=== PATIENT | female | born 1980 | race African-American/Black ===

== ENCOUNTER 2016-05-25 17:29 | Emergency (ER) | payer SELFPAY ==
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
== END 2016-05-25 18:18 | disposition home or self-care (01) ==
LOC: NAV ERS 17:29
DX: S80.02XA Contusion of left knee, initial encounter (principal); K21.9 Gastro-esophageal reflux disease without esophagitis; E05.90 Thyrotoxicosis, unspecified without thyrotoxic crisis or storm; F41.9 Anxiety disorder, unspecified; F31.9 Bipolar disorder, unspecified; Z79.899 Other long term (current) drug therapy; V89.2XXA Person injured in unspecified motor-vehicle accident, traffic, initial encounter
CPT/HCPCS: 99284

== ENCOUNTER 2016-08-20 10:44 | Emergency (ER) | payer BC, SELFPAY ==
[2016-08-20] MEDS ORDERED: Ondansetron HCl/PF 4 MG/2 ML Vial ONE (11:13)
[2016-08-20 11:50] LABS: #Basophils 0.1 thou/uL (0.0-0.2); #Eosinphils 0.1 thou/uL (0.0-0.7); #Lymphocytes 1.3 thou/uL (1.20-3.40); #Monocytes 0.6 thou/uL (0.11-0.59); #Neutrophils 5.5 thou/uL (1.40-6.50); %Basophils 1.1 % (0.0-1.0); %Eosinophils 1.2 % (0.0-10.0); %Lymphocytes 17.2 % (21.0-51.0); %Monocytes 7.5 % (0.0-10.0); Hemoglobin 12.4 g/dL (12.0-16.0); Mean Corpuscular HGB CONC 33.3 g/dL (32.0-36.0); Mean Corpuscular Hemoglobin 32.9 pg (27.0-31.0); Mean Corpuscular Volume 98.9 fl (81.0-99.0); Mean Platelet Volume 5.6 fL (7.4-10.4); Platelet Count 334 thou/uL (130-400); RBC Distribution Width 12.1 % (11.5-14.5); Red Blood Cell (RBC) Count 3.76 mill/uL (4.20-5.40); White Blood Cell (WBC) Count 7.5 thou/uL (4.8-10.8)
[2016-08-20 11:54] LABS: Bilirubin Negative (Negative); Blood, Urine Large (Negative); Glucose, Urine (Dipstick) Negative (Negative); Leukocyte Negative (Negative); Nitrite Negative (Negative); Protein, Urine (Dipstick) 30 mg/dL (Neg-Trace); Urobilinogen 0.2 mg/dL (0.2-1.0)
[2016-08-20 11:57] LABS: Clarity SL HAZY (Clear)
[2016-08-20 12:01] LABS: Bacteria/HPF 2+ HPF (None Seen); Pregnancy Test - Urine (BHCG) NEGATIVE (NEGATIVE); Pregu Control Bar Appear? YES (CONTROL BAR); Specific Gravity 1.026 (1.002-1.036); Squamous Epithelial 0-3 HPF (0-3); WBC/HPF 0-3 HPF (0-3)
[2016-08-20 12:08] LABS: ALT (SGPT) 26 U/L (0-55); AST (SGOT) 29 U/L (5-34); Albumin 3.9 g/dL (3.5-5.0); Alkaline Phosphatase 55 U/L (40-150); Anion Gap 18 mmol/L (10-20); BUN (Urea Nitrogen) 15 mg/dL (7.0-18.7); Bilirubin, Total 0.5 mg/dL (0.2-1.2); Calc. Creatinine Clearance 0 mL/min (70-130); Calcium 8.5 mg/dL (7.8-10.44); Carbon Dioxide 23 mmol/L (22-29); Chloride 98 mmol/L (98-107); Estimated GFR-MDRD 82; Globulin 3.6 g/dL (2.4-3.5); Glucose 95 mg/dL (70-105); Lipase 9 U/L (8-78); Potassium 3.8 mmol/L (3.5-5.1); Protein, Total 7.5 g/dL (6.0-8.3); Sodium 135 mmol/L (136-145)
[2016-08-20] MEDS ORDERED: Ketorolac Tromethamine 30 MG/ML VIAL ONE (12:22)
[2016-08-20] MEDS ORDERED: Sodium Chloride 0.9% 1,000 ML ONE ×2 (12:22→12:42)
--- NOTE | 2016-08-20 12:55 | RAD ---
EXAM: ONE VIEW CHEST ABDOMEN 2 VIEWS: HISTORY: Abdominal pain. Nausea and vomiting. FINDINGS: CHEST 1 VIEW: Normal cardiac silhouette. Lungs and pleural spaces are clear. No pneumothorax or osseous abnormal ity. ABDOMEN 2 VIEWS: Nonspecific bowel gas pattern. No distention or dilatation. No suspicious densities in the ad and pelvis. No pneumoperitoneum. IMPRESSION: 1. No acute cardiopulmonary process. 2. Nonspecific bowel gas pattern. POS: [facility]
== END 2016-08-20 13:58 | disposition home or self-care (01) ==
LOC: NAV ERS 10:44
DX: E86.0 Dehydration (principal); R11.2 Nausea with vomiting, unspecified; K21.9 Gastro-esophageal reflux disease without esophagitis; F41.9 Anxiety disorder, unspecified; F31.9 Bipolar disorder, unspecified; Z72.0 Tobacco use; Z79.899 Other long term (current) drug therapy
CPT/HCPCS: 74022; 80053; 81003; 81015; 81025; 83605; 83690; 85025; 96361; 96374; 96375; J1885; J2405; J7050

== ENCOUNTER 2016-08-30 10:49 | Emergency (ER) | payer BC | END 2016-08-30 11:28 | disposition home or self-care (01) | LOC: NAV ERS 10:49 | DX: M25.462 Effusion, left knee (principal); M32.9 Systemic lupus erythematosus, unspecified; K21.9 Gastro-esophageal reflux disease without esophagitis; F31.9 Bipolar disorder, unspecified; F41.9 Anxiety disorder, unspecified; Z79.899 Other long term (current) drug therapy | CPT/HCPCS: 99283 ==

== ENCOUNTER 2016-09-16 23:39 | Emergency (ER) | payer BC ==
[~2016-09-16 23:39] MED LIST: Iopamidol 370 76% 100 ML VIAL ONE
[2016-09-17 00:23] LABS: Bilirubin Negative (Negative); Blood, Urine Small (Negative); Clarity Clear (Clear); Glucose, Urine (Dipstick) Negative (Negative); Leukocyte Negative (Negative); Nitrite Negative (Negative); Pregnancy Test - Urine (BHCG) NEGATIVE (NEGATIVE); Pregu Control Bar Appear? YES (CONTROL BAR); Protein, Urine (Dipstick) Negative (Neg-Trace); Specific Gravity 1.005 (1.002-1.036); Specific Gravity, Urine 1.005 (1.002-1.036); Urobilinogen 0.2 mg/dL (0.2-1.0)
[2016-09-17 00:24] LABS: Bacteria/HPF None Seen HPF (None Seen); WBC/HPF None Seen HPF (0-3)
[2016-09-17 00:32] LABS: Amphetamine Not Detected (NotDetected); Barbiturates Screen Not Detected (NotDetected); Benzodiazepine Screen Not Detected (NotDetected); Cocaine Metabolite Screen Not Detected (NotDetected); Medtox Control Line Valid? VALID (VALID); Methadone Not Detected (NotDetected); Methamphetamine Not Detected (NotDetected); Opiate Screen Not Detected (NotDetected); Oxycodone Screen Not Detected (NotDetected); Phencyclidine (PCP) Not Detected (NotDetected); THC/Cannabinoid Screen Not Detected (NotDetected); Tricyclic Screen Not Detected (NotDetected)
[2016-09-17 00:37] LABS: #Basophils 0.1 thou/uL (0.0-0.2); #Eosinphils 0.1 thou/uL (0.0-0.7); #Monocytes 0.4 thou/uL (0.11-0.59); #Neutrophils 4.7 thou/uL (1.40-6.50); %Basophils 0.9 % (0.0-1.0); %Eosinophils 1.4 % (0.0-10.0); %Lymphocytes 27.8 % (21.0-51.0); %Monocytes 5.8 % (0.0-10.0); %Neutrophils 64.1 % (42.0-75.0); Hemoglobin 12.3 g/dL (12.0-16.0); Mean Corpuscular Hemoglobin 32.6 pg (27.0-31.0); Mean Corpuscular Volume 95.9 fl (81.0-99.0); Mean Platelet Volume 6.5 fL (7.4-10.4); Platelet Count 297 thou/uL (130-400); RBC Distribution Width 11.4 % (11.5-14.5); Red Blood Cell (RBC) Count 3.77 mill/uL (4.20-5.40); White Blood Cell (WBC) Count 7.3 thou/uL (4.8-10.8)
[2016-09-17] MEDS ORDERED: Ondansetron HCl/PF 4 MG/2 ML Vial ONE (01:03)
[2016-09-17 01:07] LABS: ALT (SGPT) 14 U/L (8-55); AST (SGOT) 18 U/L (5-34); Albumin 4.1 g/dL (3.5-5.0); Alcohol 202 mg/dL (Less than 10); Alkaline Phosphatase 57 U/L (40-150); Anion Gap 16 mmol/L (10-20); BUN (Urea Nitrogen) 16 mg/dL (7.0-18.7); Bilirubin, Total 0.3 mg/dL (0.2-1.2); Calc. Creatinine Clearance 0 mL/min (70-130); Calcium 8.8 mg/dL (7.8-10.44); Carbon Dioxide 19 mmol/L (22-29); Chloride 102 mmol/L (98-107); Estimated GFR-MDRD 81; Globulin 3.7 g/dL (2.4-3.5); Glucose 108 mg/dL (70-105); Potassium 3.3 mmol/L (3.5-5.1); Protein, Total 7.8 g/dL (6.0-8.3); Sodium 134 mmol/L (136-145)
[2016-09-17] MEDS ORDERED: Fentanyl 100 MCG/2 ML VIAL ONE (02:38)
[2016-09-17] MEDS ORDERED: Sodium Chloride 0.9% 1,000 ML ONE (02:39)
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
== END 2016-09-17 01:44 | disposition home or self-care (01) ==
LOC: NAV ERS 23:39
DX: S30.1XXA Contusion of abdominal wall, initial encounter (principal); F10.129 Alcohol abuse with intoxication, unspecified; M32.9 Systemic lupus erythematosus, unspecified; K21.9 Gastro-esophageal reflux disease without esophagitis; E05.90 Thyrotoxicosis, unspecified without thyrotoxic crisis or storm; F31.9 Bipolar disorder, unspecified; F41.9 Anxiety disorder, unspecified; Z79.899 Other long term (current) drug therapy; W01.0XXA Fall on same level from slipping, tripping and stumbling without subsequent striking against object, initial encounter
CPT/HCPCS: 36415; 74177; 80053; 80306; 80307; 81003; 81015; 81025; 85025; 96374; 96375; J2405; J3010; J7050

== ENCOUNTER 2017-01-07 14:54 | Emergency (ER) | payer BC, MEDICAID, SELFPAY ==
[2017-01-07] MEDS ORDERED: Ketorolac Tromethamine 60 MG/2 ML VIAL ONE (15:24)
[2017-01-07] MEDS ORDERED: Lidocaine 1% 20 ML MDV ONE (15:53)
--- NOTE | 2017-01-07 16:14 | RAD ---
RIGHT FOOT: 01/07/17 Three views obtained. HISTORY: Injury to foot. Tarsals appear intact. Metatarsals appear intact. Phalanges appear intact. IMPRESSION: No acute fracture identified. POS: [facility]
[2017-01-07] MEDS ORDERED: Triple Antibiotic Oint 1 GM Packet ONE (16:26)
== END 2017-01-07 17:00 | disposition home or self-care (01) ==
LOC: NAV ERS 14:54
DX: S91.114A Laceration without foreign body of right lesser toe(s) without damage to nail, initial encounter (principal); K21.9 Gastro-esophageal reflux disease without esophagitis; E05.90 Thyrotoxicosis, unspecified without thyrotoxic crisis or storm; F41.9 Anxiety disorder, unspecified; F31.9 Bipolar disorder, unspecified; F17.210 Nicotine dependence, cigarettes, uncomplicated; Z79.899 Other long term (current) drug therapy; W23.0XXA Caught, crushed, jammed, or pinched between moving objects, initial encounter
CPT/HCPCS: 12002; 96372; J1885; J2001

== ENCOUNTER 2017-01-21 20:33 | Emergency (ER) | payer SELFPAY ==
[2017-01-21] MEDS ORDERED: Ibuprofen 800 MG TAB ONE (22:25)
[2017-01-21] MEDS ORDERED: cefTRIAXone\\ROCEPHIN 2 GM VIAL ONE (22:25)
[2017-01-21] MEDS ORDERED: Morphine Sulfate 2 MG/ML SYRINGE ONE (22:25)
== END 2017-01-21 22:57 | disposition home or self-care (01) ==
LOC: NAV ERS 20:33
DX: T81.4XXA Infection following a procedure, initial encounter (principal); S91.114D Laceration without foreign body of right lesser toe(s) without damage to nail, subsequent encounter; Z48.02 Encounter for removal of sutures; F41.9 Anxiety disorder, unspecified; F31.9 Bipolar disorder, unspecified; F17.200 Nicotine dependence, unspecified, uncomplicated; K21.9 Gastro-esophageal reflux disease without esophagitis; E03.9 Hypothyroidism, unspecified; Z79.899 Other long term (current) drug therapy
CPT/HCPCS: 96372; J0696; J2270

== ENCOUNTER 2017-01-25 17:44 | Emergency (ER) | payer SELFPAY ==
[2017-01-25] MEDS ORDERED: Ibuprofen 800 MG TAB ONE (18:04)
[2017-01-25] MEDS ORDERED: Ondansetron ODT 4 MG TAB ONE (18:05)
== END 2017-01-25 18:55 | disposition home or self-care (01) ==
LOC: NAV ERS 17:44
DX: R07.89 Other chest pain (principal); B34.9 Viral infection, unspecified; K21.9 Gastro-esophageal reflux disease without esophagitis; E05.90 Thyrotoxicosis, unspecified without thyrotoxic crisis or storm; F41.9 Anxiety disorder, unspecified; F32.9 Major depressive disorder, single episode, unspecified; Z87.891 Personal history of nicotine dependence; Z79.2 Long term (current) use of antibiotics; Z79.899 Other long term (current) drug therapy
CPT/HCPCS: 93005; Q0162

== ENCOUNTER 2017-02-23 11:50 | Emergency (ER) | payer SELFPAY | END 2017-02-23 12:29 | disposition home or self-care (01) | LOC: NAV ERS 11:50 | DX: T19.2XXA Foreign body in vulva and vagina, initial encounter (principal); M32.9 Systemic lupus erythematosus, unspecified; K21.9 Gastro-esophageal reflux disease without esophagitis; E05.90 Thyrotoxicosis, unspecified without thyrotoxic crisis or storm; F41.9 Anxiety disorder, unspecified; F31.9 Bipolar disorder, unspecified; Z79.899 Other long term (current) drug therapy | CPT/HCPCS: 99283 ==

== ENCOUNTER 2017-04-04 20:53 | Emergency (ER) | payer MEDICAID ==
[2017-04-04] MEDS ORDERED: Ondansetron ODT 4 MG TAB ONE (21:01)
[2017-04-04] MEDS ORDERED: Promethazine HCl 25 MG/ML VIAL ONE (21:21)
== END 2017-04-04 21:51 | disposition home or self-care (01) ==
LOC: NAV ERS 20:53
DX: R11.2 Nausea with vomiting, unspecified (principal); E03.9 Hypothyroidism, unspecified; E78.5 Hyperlipidemia, unspecified; F31.9 Bipolar disorder, unspecified; F41.9 Anxiety disorder, unspecified; K21.9 Gastro-esophageal reflux disease without esophagitis; M32.9 Systemic lupus erythematosus, unspecified; Z85.850 Personal history of malignant neoplasm of thyroid; Z79.899 Other long term (current) drug therapy
CPT/HCPCS: 96372; J2550; Q0162

== ENCOUNTER 2017-04-13 10:04 | Emergency (ER) | payer MEDICAID, SELFPAY ==
[2017-04-13 10:56] LABS: Bilirubin Negative (Negative); Blood, Urine Large (Negative); Clarity Turbid (Clear); Glucose, Urine (Dipstick) Negative (Negative); Leukocyte Negative (Negative); Nitrite Negative (Negative); Protein, Urine (Dipstick) Negative (Neg-Trace); Urobilinogen 0.2 mg/dL (0.2-1.0); pH, Urine 5.5 (5.0-9.0)
[2017-04-13 11:06] LABS: Pregnancy Test - Urine (BHCG) Negative (Negative); Pregu Control Background? CLEAR/WHITE (CLR/WHITE); Pregu Control Bar Appear? YES (CONTROL BAR)
[2017-04-13 11:15] LABS: Bacteria/HPF None Seen HPF (None Seen); RBC/HPF GREATER THAN 50-TNTC HPF (0-3); Squamous Epithelial 0-3 HPF (0-3)
[2017-04-13 11:21] LABS: #Basophils 0.1 thou/uL (0.0-0.2); #Eosinphils 0.1 thou/uL (0.0-0.7); #Lymphocytes 1.4 thou/uL (1.20-3.40); #Monocytes 0.3 thou/uL (0.11-0.59); #Neutrophils 2.9 thou/uL (1.40-6.50); %Basophils 1.6 % (0.0-1.0); %Lymphocytes 29.3 % (21.0-51.0); %Monocytes 6.9 % (0.0-10.0); %Neutrophils 59.2 % (42.0-75.0); Hemoglobin 12.3 g/dL (12.0-16.0); Mean Corpuscular HGB CONC 32.7 g/dL (32.0-36.0); Mean Corpuscular Hemoglobin 32.8 pg (27.0-31.0); Mean Platelet Volume 6.7 fL (7.4-10.4); Platelet Count 326 thou/uL (130-400); RBC Distribution Width 11.4 % (11.5-14.5); Red Blood Cell (RBC) Count 3.76 mill/uL (4.20-5.40); White Blood Cell (WBC) Count 4.8 thou/uL (4.8-10.8)
[2017-04-13] MEDS ORDERED: Ketorolac Tromethamine 30 MG/ML VIAL ONE (11:27)
[2017-04-13 11:30] LABS: ALT (SGPT) 30 U/L (8-55); AST (SGOT) 24 U/L (5-34); Alkaline Phosphatase 59 U/L (40-150); Anion Gap 15 mmol/L (10-20); BUN (Urea Nitrogen) 24 mg/dL (7.0-18.7); Bilirubin, Total 0.2 mg/dL (0.2-1.2); Calc. Creatinine Clearance 0 mL/min (70-130); Calcium 8.7 mg/dL (7.8-10.44); Carbon Dioxide 21 mmol/L (22-29); Chloride 105 mmol/L (98-107); Estimated GFR-MDRD Greater than 90; Globulin 3.8 g/dL (2.4-3.5); Glucose 83 mg/dL (70-105); Lipase 16 U/L (8-78); Potassium 4.3 mmol/L (3.5-5.1); Protein, Total 7.8 g/dL (6.0-8.3); Sodium 137 mmol/L (136-145)
--- NOTE | 2017-04-13 12:32 | CT ---
CT OF THE ABDOMEN AND PELVIS WITH IV CONTRAST: INDICATIONS: A 37-year-old female with abdominal pain and cramping, concerning for possible foreign body. The pat ient reports that she put a tampon in and cannot remember if she took it out. FINDINGS: No gas-filled tampon is seen within the vaginal vault. No free fluid is evident within the abdominal cavity or pelvis. There is a small hiatal hernia. There is a stable small hepatic cyst within the right hepatic lobe. The kidneys, adrenal glands, pancreas, and spleen appear within normal limits. There is a normal appendix in the right lower quadrant. No acute osseous abnormality is evident. IMPRESSION: 1. No gas-filled tampon is evident within the vagina; however, would recommend correlation with phys ical exam to exclude the presence of a completely fluid-filled tampon within this location. Foreign body within the vaginal vault cannot be entirely excluded on the CT examination. 2. No acute intraabdominal or intrapelvic abnormality demonstrated. POS: [facility]
== END 2017-04-13 13:22 | disposition home or self-care (01) ==
LOC: NAV ERS 10:04
DX: R10.31 Right lower quadrant pain (principal); R10.32 Left lower quadrant pain; F41.9 Anxiety disorder, unspecified; F31.9 Bipolar disorder, unspecified; E05.90 Thyrotoxicosis, unspecified without thyrotoxic crisis or storm; K21.9 Gastro-esophageal reflux disease without esophagitis; M32.9 Systemic lupus erythematosus, unspecified; E78.5 Hyperlipidemia, unspecified; Z87.891 Personal history of nicotine dependence; Z79.899 Other long term (current) drug therapy
CPT/HCPCS: 36415; 74177; 80053; 81003; 81015; 81025; 83605; 83690; 85025; 96374; 96375; J1885; J2270

== ENCOUNTER 2017-05-09 12:25 | Emergency (ER) | payer MEDICAID ==
[2017-05-09] MEDS ORDERED: Morphine 4 MG/ML Carpuject ONE (13:12)
[2017-05-09] MEDS ORDERED: Sodium Chloride 0.9% 2,000 ML ONE (13:15)
[2017-05-09 13:42] LABS: #Basophils 0.1 thou/uL (0.0-0.2); #Eosinphils 0.2 thou/uL (0.0-0.7); #Lymphocytes 1.7 thou/uL (1.20-3.40); #Monocytes 0.6 thou/uL (0.11-0.59); #Neutrophils 4.5 thou/uL (1.40-6.50); %Basophils 0.7 % (0.0-1.0); %Eosinophils 2.8 % (0.0-10.0); %Lymphocytes 24.4 % (21.0-51.0); %Monocytes 8.4 % (0.0-10.0); %Neutrophils 63.6 % (42.0-75.0); Hemoglobin 11.3 g/dL (12.0-16.0); Mean Corpuscular HGB CONC 31.4 g/dL (32.0-36.0); Mean Corpuscular Hemoglobin 29.6 pg (27.0-31.0); Mean Corpuscular Volume 94.4 fl (81.0-99.0); Mean Platelet Volume 7.2 fL (7.4-10.4); Platelet Count 308 thou/uL (130-400); RBC Distribution Width 11.9 % (11.5-14.5); Red Blood Cell (RBC) Count 3.83 mill/uL (4.20-5.40); White Blood Cell (WBC) Count 7.1 thou/uL (4.8-10.8)
[2017-05-09 13:50] LABS: BHCG - Serum Negative (NEGATIVE); Pregs Control Bar Appear? YES (CONTROL BAR)
[2017-05-09 13:53] LABS: Anion Gap 15 mmol/L (10-20); BUN (Urea Nitrogen) 17 mg/dL (7.0-18.7); Calc. Creatinine Clearance 0 mL/min (70-130); Calcium 8.7 mg/dL (7.8-10.44); Carbon Dioxide 22 mmol/L (22-29); Chloride 105 mmol/L (98-107); Estimated GFR-MDRD Greater than 90; Glucose 88 mg/dL (70-105); Potassium 3.9 mmol/L (3.5-5.1); Sodium 138 mmol/L (136-145)
[2017-05-09 14:01] LABS: Bilirubin Negative (Negative); Blood, Urine Large (Negative); Clarity Clear (Clear); Glucose, Urine (Dipstick) Negative (Negative); Leukocyte Negative (Negative); Nitrite Negative (Negative); Protein, Urine (Dipstick) Negative (Neg-Trace); Specific Gravity, Urine 1.025 (1.005-1.030); Urobilinogen 0.2 mg/dL (0.2-1.0)
[2017-05-09 14:08] LABS: Bacteria/HPF Rare-Few HPF (None Seen); Other Microscopic Description NO; RBC/HPF GREATER THAN 50-TNTC HPF (0-3); WBC/HPF 0-3 HPF (0-3)
[2017-05-09] MEDS ORDERED: Ketorolac Tromethamine 30 MG/ML VIAL ONE (15:30)
--- NOTE | 2017-05-09 15:34 | CT ---
CT OF ABDOMEN AND PELVIS PERFORMED WITH INTRAVENOUS CONTRAST ENHANCEMENT: 05/09/17 HISTORY: Right lower quadrant pain. COMPARISON: 04/13/17 study. The lung bases are clear of infiltrative process. There is some gravity dependent atelectasis. Small hypodensity within the right lobe of the liver, statistically most likely a tiny cyst. The sple en, pancreas and gallbladder regions are unremarkable. Right and left adrenal glands and right and left kidneys are normal in size. No renal calculi or evid ence for obstruction. CT OF PELVIS PERFORMED WITH CONTRAST ENHANCEMENT: The appendix is unremarkable. There is no evidence of adenopathy, mass, or free fluid. Air is seen in the region of the vagina consistent with a tampon. IMPRESSION: No acute intra-abdominal or pelvic abnormalities. POS: [facility]
== END 2017-05-09 17:30 | disposition short-term general hospital (02) ==
LOC: NAV ERS 12:25
DX: R10.31 Right lower quadrant pain (principal); E78.5 Hyperlipidemia, unspecified; K21.9 Gastro-esophageal reflux disease without esophagitis; F41.9 Anxiety disorder, unspecified; F31.9 Bipolar disorder, unspecified; Z87.891 Personal history of nicotine dependence; Z79.899 Other long term (current) drug therapy
CPT/HCPCS: 74177; 80048; 81003; 81015; 83605; 84703; 85025; 87086; 96361; 96374; 96375; J1885; J2270; J7050

== ENCOUNTER 2017-05-20 11:06 | Emergency (ER) | payer OTHER ==
[2017-05-20] MEDS ORDERED: Ketorolac Tromethamine 60 MG/2 ML VIAL ONE (11:45)
[2017-05-20] MEDS ORDERED: Adacel (T-DAP) 0.5 ML VIAL ONE (11:45)
--- NOTE | 2017-05-20 13:05 | RAD ---
LEFT KNEE 4 VIEWS; Date: 05/20/17 HISTORY: 37-year-old female with left knee pain following a fall last night. IMPRESSION: No fracture, dislocation, or other significant acute osseous abnormality. POS: [facility]
--- NOTE | 2017-05-20 13:29 | RAD ---
RIGHT KNEE 4 VIEWS: Date: 05/20/17 HISTORY: 37-year-old female with bilateral knee pain following a fall after being tripped last night. IMPRESSION: No fracture, dislocation, or other significant acute osseous abnormality. POS: [facility]
== END 2017-05-20 12:53 | disposition home or self-care (01) ==
LOC: NAV ERS 11:06
DX: S80.01XA Contusion of right knee, initial encounter (principal); S00.211A Abrasion of right eyelid and periocular area, initial encounter; E78.5 Hyperlipidemia, unspecified; K21.9 Gastro-esophageal reflux disease without esophagitis; F41.9 Anxiety disorder, unspecified; F31.9 Bipolar disorder, unspecified; Z87.891 Personal history of nicotine dependence; W22.8XXA Striking against or struck by other objects, initial encounter; Z79.899 Other long term (current) drug therapy
CPT/HCPCS: 90471; 90715; 96372; J1885

== ENCOUNTER 2017-06-05 20:10 | Emergency (ER) | payer MEDICAID, OTHER ==
[2017-06-05] MEDS ORDERED: Ibuprofen 800 MG TAB ONE (21:09)
--- NOTE | 2017-06-05 21:44 | CT ---
CT OF HEAD NONCONTRAST: Indication: Fall with head injury, pain. FINDINGS: There is no acute intracranial hemorrhage, mass effect, midline shift or ventriculomegaly. Scattered paranasal sinus opacification present. IMPRESSION: No acute intracranial hemorrhage or mass effect. POS: [facility]
--- NOTE | 2017-06-05 21:47 | CT ---
CT OF FACE NONCONTRAST: Indication: Fall with facial injury, pain. FINDINGS: Orbital berumen are intact. There is mild leftward nasal septal deviation with associated nasal septal spur. Maxillary sinus berumen are intact. No post-traumatic dislocation of either temporomandibular moises nt. Pterygoid plates are maintained. There is no retrobulbar hematoma or mass effect. There is an oss eous deformity of the nasal bones, more notable on the right. IMPRESSION: 1. Nasal bone deformity which may relate to an acute fracture. If there is focal pain in this region, correlate with physical exam. 2. Additional details as above. POS: [facility]
[2017-06-05] MEDS ORDERED: Bacitracin Zinc 1 Packet ONE (21:49)
== END 2017-06-05 22:00 | disposition home or self-care (01) ==
LOC: NAV ERS 20:10
DX: S02.2XXA Fracture of nasal bones, initial encounter for closed fracture (principal); S01.511A Laceration without foreign body of lip, initial encounter; S80.212A Abrasion, left knee, initial encounter; E78.5 Hyperlipidemia, unspecified; K21.9 Gastro-esophageal reflux disease without esophagitis; Z87.891 Personal history of nicotine dependence; F31.9 Bipolar disorder, unspecified; F41.9 Anxiety disorder, unspecified; W01.0XXA Fall on same level from slipping, tripping and stumbling without subsequent striking against object, initial encounter; Y93.66 Activity, soccer
CPT/HCPCS: 12011; 70450; 70486

== ENCOUNTER 2017-06-08 10:53 | Emergency (ER) | payer MEDICAID, SELFPAY | END 2017-06-08 11:40 | disposition home or self-care (01) | LOC: NAV ERS 10:53 | DX: S02.2XXD Fracture of nasal bones, subsequent encounter for fracture with routine healing (principal); S01.81XD Laceration without foreign body of other part of head, subsequent encounter; L08.9 Local infection of the skin and subcutaneous tissue, unspecified; E78.5 Hyperlipidemia, unspecified; M32.9 Systemic lupus erythematosus, unspecified; K21.9 Gastro-esophageal reflux disease without esophagitis; E03.9 Hypothyroidism, unspecified; F31.9 Bipolar disorder, unspecified; Z85.850 Personal history of malignant neoplasm of thyroid; Z87.891 Personal history of nicotine dependence; Z79.899 Other long term (current) drug therapy; X58.XXXD Exposure to other specified factors, subsequent encounter | CPT/HCPCS: 99282 ==

== ENCOUNTER 2017-07-14 12:50 | Emergency (ER) | payer OTHER ==
[2017-07-14] MEDS ORDERED: Ketorolac Tromethamine 60 MG/2 ML VIAL ONE (13:05)
[2017-07-14] MEDS ORDERED: Cyclobenzaprine 10 MG TAB ONE (13:11)
== END 2017-07-14 13:36 | disposition home or self-care (01) ==
LOC: NAV ERS 12:50
DX: M54.2 Cervicalgia (principal); E66.9 Obesity, unspecified; E78.5 Hyperlipidemia, unspecified; M32.9 Systemic lupus erythematosus, unspecified; K21.9 Gastro-esophageal reflux disease without esophagitis; E03.9 Hypothyroidism, unspecified; F41.9 Anxiety disorder, unspecified; F31.9 Bipolar disorder, unspecified; G40.909 Epilepsy, unspecified, not intractable, without status epilepticus; Z87.891 Personal history of nicotine dependence; Z85.850 Personal history of malignant neoplasm of thyroid; Z79.1 Long term (current) use of non-steroidal anti-inflammatories (NSAID); Z79.899 Other long term (current) drug therapy
CPT/HCPCS: 96372; J1885

== ENCOUNTER 2017-08-04 14:07 | Emergency (ER) | payer OTHER ==
[2017-08-04] MEDS ORDERED: Morphine 4 MG/ML Carpuject ONE (14:38)
[2017-08-04] MEDS ORDERED: Ondansetron HCl/PF 4 MG/2 ML Vial ONE (14:38)
[2017-08-04 14:41] LABS: Bilirubin Negative (Negative); Blood, Urine Small (Negative); Clarity Clear (Clear); Glucose, Urine (Dipstick) Negative (Negative); Leukocyte Trace (Negative); Nitrite Negative (Negative); Protein, Urine (Dipstick) Negative (Neg-Trace); Urobilinogen 0.2 mg/dL (0.2-1.0); pH, Urine 5.5 (5.0-9.0)
[2017-08-04 14:47] LABS: RBC/HPF 0-3 HPF (0-3); Squamous Epithelial 0-3 HPF (0-3); WBC/HPF 0-3 HPF (0-3)
[2017-08-04 14:48] LABS: Specific Gravity, Urine 1.022 (1.002-1.036)
[2017-08-04 14:57] LABS: #Basophils 0.1 thou/uL (0.0-0.2); #Eosinphils 0.1 thou/uL (0.0-0.7); #Lymphocytes 1.6 thou/uL (1.20-3.40); #Monocytes 0.7 thou/uL (0.11-0.59); #Neutrophils 3.9 thou/uL (1.40-6.50); %Basophils 1.5 % (0.0-1.0); %Eosinophils 2.1 % (0.0-10.0); %Lymphocytes 24.8 % (21.0-51.0); %Monocytes 10.4 % (0.0-10.0); %Neutrophils 61.1 % (42.0-75.0); Hemoglobin 11.8 g/dL (12.0-16.0); Mean Corpuscular HGB CONC 31.9 g/dL (32.0-36.0); Mean Corpuscular Hemoglobin 28.6 pg (27.0-31.0); Mean Corpuscular Volume 89.6 fl (81.0-99.0); Mean Platelet Volume 6.6 fL (7.4-10.4); Platelet Count 346 thou/uL (130-400); RBC Distribution Width 12.2 % (11.5-14.5); Red Blood Cell (RBC) Count 4.11 mill/uL (4.20-5.40); White Blood Cell (WBC) Count 6.3 thou/uL (4.8-10.8)
[2017-08-04 15:09] LABS: ALT (SGPT) 20 U/L (8-55); AST (SGOT) 24 U/L (5-34); Albumin 3.9 g/dL (3.5-5.0); Alkaline Phosphatase 73 U/L (40-150); Anion Gap 16 mmol/L (10-20); BUN (Urea Nitrogen) 16 mg/dL (7.0-18.7); Bilirubin, Total 0.2 mg/dL (0.2-1.2); CK (CPK) 70 U/L (29-168); Calc. Creatinine Clearance 0 mL/min (70-130); Calcium 9.8 mg/dL (7.8-10.44); Carbon Dioxide 21 mmol/L (22-29); Chloride 106 mmol/L (98-107); Estimated GFR-MDRD Greater than 90; Globulin 4.1 g/dL (2.4-3.5); Glucose 80 mg/dL (70-105); Lipase 34 U/L (8-78); Potassium 4.3 mmol/L (3.5-5.1); Sodium 139 mmol/L (136-145)
--- NOTE | 2017-08-04 17:52 | CT ---
CT OF THE ABDOMEN AND PELVIS WITH IV CONTRAST: 08/04/17 INDICATION: One week following hysterectomy with nausea. COMPARISON: Prior exam dated 05/09/17. FINDINGS: Since the comparison examination, the uterus has been surgically removed. There is a 1.8 cm follicle within the right ovary. Left ovary is normal appearing. No free fluid is evident. The visualized uret ers are normal appearing. No lymphadenopathy is evident. The liver, spleen, pancreas, adrenal glands and kidneys are normal appearing. Normal appendix is seen within the right lower quadrant. No definit e acute osseous abnormality is evident. IMPRESSION: No acute abnormality. POS: [facility]
== END 2017-08-04 18:11 | disposition home or self-care (01) ==
LOC: NAV ERS 14:07
DX: K59.00 Constipation, unspecified (principal); E78.5 Hyperlipidemia, unspecified; K21.9 Gastro-esophageal reflux disease without esophagitis; E03.9 Hypothyroidism, unspecified; Z87.891 Personal history of nicotine dependence; Z79.899 Other long term (current) drug therapy
CPT/HCPCS: 74177; 80053; 81003; 81015; 82550; 83690; 85025; 96374; 96375; 96376; J2270; J2405

== ENCOUNTER 2017-09-20 20:38 | Emergency (ER) | payer OTHER ==
--- NOTE | 2017-09-20 21:14 | RAD ---
CHEST ONE VIEW 09/20/17 HISTORY: Anxiety. COMPARISON: Chest radiograph 2015. FINDINGS: Lungs are clear. No pneumothorax or effusion. The cardiac silhouette and mediastinal contours are wit hin normal limits. IMPRESSION: No acute intrathoracic abnormality. POS: [facility]
[2017-09-20] MEDS ORDERED: Lorazepam 2 MG/ML VIAL ONE (21:21)
[2017-09-20] MEDS ORDERED: Ondansetron HCl/PF 4 MG/2 ML Vial ONE (21:21)
[2017-09-20 21:40] LABS: #Basophils 0.1 thou/uL (0.0-0.2); #Eosinphils 0.2 thou/uL (0.0-0.7); #Lymphocytes 2.3 thou/uL (1.20-3.40); #Monocytes 0.5 thou/uL (0.11-0.59); #Neutrophils 3.1 thou/uL (1.40-6.50); %Basophils 1.2 % (0.0-1.0); %Eosinophils 2.4 % (0.0-10.0); %Lymphocytes 37.9 % (21.0-51.0); %Monocytes 8.2 % (0.0-10.0); %Neutrophils 50.3 % (42.0-75.0); Hemoglobin 11.5 g/dL (12.0-16.0); Mean Corpuscular HGB CONC 31.7 g/dL (32.0-36.0); Mean Corpuscular Hemoglobin 28.5 pg (27.0-31.0); Mean Corpuscular Volume 89.8 fl (81.0-99.0); Mean Platelet Volume 6.7 fL (7.4-10.4); Platelet Count 317 thou/uL (130-400); RBC Distribution Width 14.3 % (11.5-14.5); Red Blood Cell (RBC) Count 4.04 mill/uL (4.20-5.40); White Blood Cell (WBC) Count 6.2 thou/uL (4.8-10.8)
[2017-09-20 21:57] LABS: ALT (SGPT) 29 U/L (8-55); AST (SGOT) 28 U/L (5-34); Albumin 3.9 g/dL (3.5-5.0); Alkaline Phosphatase 63 U/L (40-150); Anion Gap 15 mmol/L (10-20); BUN (Urea Nitrogen) 22 mg/dL (7.0-18.7); Bilirubin, Total 0.1 mg/dL (0.2-1.2); Calc. Creatinine Clearance 0 mL/min (70-130); Calcium 8.3 mg/dL (7.8-10.44); Carbon Dioxide 21 mmol/L (22-29); Chloride 105 mmol/L (98-107); Estimated GFR-MDRD Greater than 90; Globulin 3.3 g/dL (2.4-3.5); Glucose 91 mg/dL (70-105); Potassium 3.6 mmol/L (3.5-5.1); Protein, Total 7.2 g/dL (6.0-8.3); Sodium 137 mmol/L (136-145)
[2017-09-20] MEDS ORDERED: Ketorolac Tromethamine 30 MG/ML VIAL ONE (21:57)
[2017-09-20 21:58] LABS: CKMB 0.8 ng/mL (0-6.6); Troponin I Less than 0.010 ng/mL (< 0.028)
== END 2017-09-20 22:20 | disposition home or self-care (01) ==
LOC: NAV ERS 20:38
DX: K52.1 Toxic gastroenteritis and colitis (principal); F41.0 Panic disorder [episodic paroxysmal anxiety]; K21.9 Gastro-esophageal reflux disease without esophagitis; F32.9 Major depressive disorder, single episode, unspecified; Z87.891 Personal history of nicotine dependence; E03.9 Hypothyroidism, unspecified; Z79.899 Other long term (current) drug therapy
CPT/HCPCS: 71045; 80053; 82553; 84484; 85025; 85379; 93005; 96374; 96375; J1885; J2060; J2405

== ENCOUNTER 2017-10-22 18:53 | Emergency (ER) | payer OTHER ==
[2017-10-22] MEDS ORDERED: Ketorolac Tromethamine 60 MG/2 ML VIAL ONE (19:16)
[2017-10-22] MEDS ORDERED: Cyclobenzaprine 10 MG TAB ONE (19:16)
== END 2017-10-22 19:37 | disposition home or self-care (01) ==
LOC: NAV ERS 18:53
DX: G89.29 Other chronic pain (principal); M54.5 Low back pain; E78.5 Hyperlipidemia, unspecified; K21.9 Gastro-esophageal reflux disease without esophagitis; F41.0 Panic disorder [episodic paroxysmal anxiety]; F31.9 Bipolar disorder, unspecified; Z87.891 Personal history of nicotine dependence; Z79.899 Other long term (current) drug therapy
CPT/HCPCS: 96372; J1885

== ENCOUNTER 2017-10-23 17:22 | Emergency (ER) | payer OTHER ==
[2017-10-23] MEDS ORDERED: Morphine 4 MG/ML Carpuject ONE (18:06)
[2017-10-23] MEDS ORDERED: Ondansetron HCl/PF 4 MG/2 ML Vial ONE (18:10)
[2017-10-23 18:13] LABS: #Basophils 0.1 thou/uL (0.0-0.2); #Eosinphils 0.2 thou/uL (0.0-0.7); #Lymphocytes 1.9 thou/uL (1.20-3.40); #Monocytes 0.6 thou/uL (0.11-0.59); #Neutrophils 5.7 thou/uL (1.40-6.50); %Basophils 0.7 % (0.0-1.0); %Eosinophils 1.9 % (0.0-10.0); %Lymphocytes 22.7 % (21.0-51.0); %Monocytes 6.6 % (0.0-10.0); %Neutrophils 68.2 % (42.0-75.0); Hemoglobin 11.8 g/dL (12.0-16.0); Mean Corpuscular HGB CONC 31.3 g/dL (32.0-36.0); Mean Corpuscular Hemoglobin 28.7 pg (27.0-31.0); Mean Corpuscular Volume 91.6 fl (81.0-99.0); Mean Platelet Volume 6.6 fL (7.4-10.4); Platelet Count 268 thou/uL (130-400); RBC Distribution Width 13.6 % (11.5-14.5); Red Blood Cell (RBC) Count 4.12 mill/uL (4.20-5.40); White Blood Cell (WBC) Count 8.4 thou/uL (4.8-10.8)
[2017-10-23 18:31] LABS: Bilirubin Negative (Negative); Blood, Urine Moderate (Negative); Clarity Clear (Clear); Glucose, Urine (Dipstick) Negative (Negative); Leukocyte Negative (Negative); Nitrite Negative (Negative); Protein, Urine (Dipstick) Negative (Neg-Trace); Urobilinogen 0.2 mg/dL (0.2-1.0); pH, Urine 5.5 (5.0-9.0)
[2017-10-23 18:33] LABS: Pregnancy Test - Urine (BHCG) Negative (Negative); Pregu Control Background? CLEAR/WHITE (CLR/WHITE); Pregu Control Bar Appear? YES (CONTROL BAR)
[2017-10-23 18:44] LABS: ALT (SGPT) 23 U/L (8-55); AST (SGOT) 20 U/L (5-34); Alkaline Phosphatase 68 U/L (40-150); Anion Gap 14 mmol/L (10-20); BUN (Urea Nitrogen) 16 mg/dL (7.0-18.7); Bilirubin, Total 0.2 mg/dL (0.2-1.2); Calc. Creatinine Clearance 0 mL/min (70-130); Carbon Dioxide 20 mmol/L (22-29); Chloride 105 mmol/L (98-107); Estimated GFR-MDRD Greater than 90; Globulin 3.5 g/dL (2.4-3.5); Glucose 98 mg/dL (70-105); Lipase 25 U/L (8-78); Potassium 4.3 mmol/L (3.5-5.1); Protein, Total 7.5 g/dL (6.0-8.3); Sodium 135 mmol/L (136-145)
[2017-10-23 18:46] LABS: RBC/HPF 0-3 HPF (0-3)
[2017-10-23 18:47] LABS: Bacteria/HPF None Seen HPF (None Seen); Squamous Epithelial 0-3 HPF (0-3); WBC/HPF None Seen HPF (0-3)
--- NOTE | 2017-10-23 19:28 | CT ---
CT ABDOMEN WITH CONTRAST CT PELVIS WITH CONTRAST: DATE: 10/23/2017 TIME: 6:25 p.m. HISTORY: A 37-year-old female with acute right upper quadrant abdominal pain. COMPARISON: 08/04/2017 TECHNIQUE: IV injection of iodinated contrast media: Administered. Oral contrast media: Not administered. FINDINGS: The lung bases are grossly clear. The appendix, urinary bladder, abdominal aorta, bilateral kidneys, adrenals, liver, pancreas, and spleen are normal. No signs of acute colonic diverticulitis. There is a new finding of a moderate to large volume of stool, mildly expanding the rectum. No small bowel dilation. No ascites or pneumoperitoneum. Uterus is absent. Previously described 1.8 cm right ova yael follicle is no longer visualized. Instead, there is a 2 x 2 x 2 cm left adnexal cyst. IMPRESSION: 1. Increased amount of stool in the rectum. 2. Incidental finding of a 2 cm left ovarian cyst. 3. Status post hysterectomy. 4. Otherwise negative. ANDREY Harvey POS: [facility]
== END 2017-10-23 19:29 | disposition home or self-care (01) ==
LOC: NAV ERS 17:22
DX: R10.31 Right lower quadrant pain (principal); E78.5 Hyperlipidemia, unspecified; K21.9 Gastro-esophageal reflux disease without esophagitis; E03.9 Hypothyroidism, unspecified; F31.9 Bipolar disorder, unspecified; F41.9 Anxiety disorder, unspecified; Z87.891 Personal history of nicotine dependence; Z79.899 Other long term (current) drug therapy
CPT/HCPCS: 36415; 74177; 80053; 81003; 81015; 81025; 83690; 85025; 96374; 96375; J2270; J2405

== ENCOUNTER 2018-01-08 14:57 | Emergency (ER) | payer OTHER, SELFPAY ==
--- NOTE | 2018-01-08 15:45 | RAD ---
AP VIEW OF THE PELVIS: INDICATION: Ground level with pelvic pain. COMPARISON: None. FINDINGS: No acute fracture is evident. A small phlebolith is seen within the lower pelvis. SI joints are nor mal-appearing. IMPRESSION: No acute osseous abnormality. POS: [facility]
[2018-01-08] MEDS ORDERED: methylPREDNISolone Sod Succ/PF 125 MG/2 ML VIAL ONE (15:56)
== END 2018-01-08 16:13 | disposition home or self-care (01) ==
LOC: NAV ERS 14:57
DX: S30.0XXA Contusion of lower back and pelvis, initial encounter (principal); E78.5 Hyperlipidemia, unspecified; K21.9 Gastro-esophageal reflux disease without esophagitis; E03.9 Hypothyroidism, unspecified; Z87.891 Personal history of nicotine dependence; F41.0 Panic disorder [episodic paroxysmal anxiety]; F31.9 Bipolar disorder, unspecified; Z79.899 Other long term (current) drug therapy; W18.2XXA Fall in (into) shower or empty bathtub, initial encounter
CPT/HCPCS: 72170; 96372; J2930

== ENCOUNTER 2018-02-25 18:33 | Emergency (ER) | payer OTHER, SELFPAY ==
[2018-02-25 19:28] LABS: #Basophils 0.1 thou/uL (0.0-0.2); #Eosinphils 0.2 thou/uL (0.0-0.7); #Lymphocytes 2.2 thou/uL (1.20-3.40); #Monocytes 0.4 thou/uL (0.11-0.59); #Neutrophils 4.6 thou/uL (1.40-6.50); %Eosinophils 2.4 % (0.0-10.0); %Lymphocytes 29.7 % (21.0-51.0); %Monocytes 5.4 % (0.0-10.0); %Neutrophils 61.5 % (42.0-75.0); Hemoglobin 12.3 g/dL (12.0-16.0); Mean Corpuscular HGB CONC 31.3 g/dL (32.0-36.0); Mean Corpuscular Volume 98.8 fL (78.0-98.0); Mean Platelet Volume 6.3 fL (7.4-10.4); Platelet Count 280 thou/uL (130-400); RBC Distribution Width 12.5 % (11.5-14.5); Red Blood Cell (RBC) Count 3.98 mill/uL (4.20-5.40); White Blood Cell (WBC) Count 7.4 thou/uL (4.8-10.8)
[2018-02-25] MEDS ORDERED: Orphenadrine Citrate 60 MG/2 ML VIAL ONE (19:32)
[2018-02-25] MEDS ORDERED: Sodium Chloride 0.9% 1,000 ML ONE (19:32)
[2018-02-25] MEDS ORDERED: Ondansetron HCl/PF 4 MG/2 ML Vial ONE (19:32)
[2018-02-25 19:42] LABS: ALT (SGPT) 18 U/L (8-55); AST (SGOT) 18 U/L (5-34); Alkaline Phosphatase 60 U/L (40-150); Anion Gap 15 mmol/L (10-20); BUN (Urea Nitrogen) 13 mg/dL (7.0-18.7); Bilirubin, Total 0.2 mg/dL (0.2-1.2); Calc. Creatinine Clearance 0 mL/min (70-130); Calcium 8.6 mg/dL (7.8-10.44); Carbon Dioxide 22 mmol/L (22-29); Chloride 106 mmol/L (98-107); Estimated GFR-MDRD 89; Globulin 3.3 g/dL (2.4-3.5); Glucose 96 mg/dL (70-105); Potassium 4.4 mmol/L (3.5-5.1); Protein, Total 7.3 g/dL (6.0-8.3); Sodium 139 mmol/L (136-145)
[2018-02-25 19:46] LABS: INR-International Normal Ratio 0.9; PTT 24.9 SEC (22.9-36.1); Prothrombin Time 11.9 SEC (12.0-14.7)
[2018-02-25] MEDS ORDERED: diphenhydrAMINE 25 MG CAP ONE (20:12)
[2018-02-25] MEDS ORDERED: Ketorolac Tromethamine 30 MG/ML VIAL ONE (20:13)
--- NOTE | 2018-02-25 20:15 | CT ---
CT BRAIN WITHOUT CONTRAST: INDICATIONS: History of headache and seizure. COMPARISON: Prior study dated 06/05/2017. FINDINGS: No acute infarct, hemorrhage, or hydrocephalus is present. The septum pellucidum and third ventricle are midline. The skull and extracranial soft tissues appear within normal limits. IMPRESSION: No acute intracranial abnormality. POS: [facility]
--- NOTE | 2018-02-25 20:24 | CT ---
CT CERVICAL SPINE WITHOUT CONTRAST: HISTORY: Pain. Headache. Seizure several days ago. COMPARISON: None. FINDINGS: No craniocervical dissociation. The lateral masses of C1 and C2, as well as the facets, have appropr iate alignment. Straightening of the normal cervical lordosis may be due to patient position or musc le spasm. If there is concern for ligamentous injury, consider MRI. Soft tissue neck structures, upper mediastinum and lung apices, are unremarkable. Cervical spine vertebral body height is maintained. There is no fracture. limited evaluation of the contents of the central spinal canal and neural foramina. C2-C3: No high grade central canal stenosis or high grade foraminal narrowing. C3-C4: No high grade central canal stenosis or high grade foraminal narrowing. C4-C5: No high grade central canal stenosis or high grade foraminal narrowing. C5-C6: No high grade central canal stenosis or high grade foraminal narrowing. C6-C7/C7-T1: No high grade central canal stenosis or high grade foraminal narrowing. IMPRESSION: 1. No high grade central canal stenosis or high grade foraminal narrowing 2. No evidence of fracture. 3. Straightening of normal cervical lordosis, presumed to be due to patient position or spasm. If t here is concern for ligamentous injury, consider MRI. Additionally, a non-emergent MRI can be perfor med to better evaluate the central canal stenosis and neural foramina. POS: [facility]
--- NOTE | 2018-02-25 20:28 | CT ---
CT LUMBAR SPINE WITHOUT CONTRAST: INDICATIONS: History of low back pain and headache after a seizure several days ago. COMPARISON: MRI of the lumbar spine dated 07/05/2017. FINDINGS: No acute fracture or subluxation is evident. Spinal alignment is preserved. The visualized retroper itoneum and paravertebral soft tissues are within normal limits. There is mild degenerative change o f both SI joints. The osseous central canal and neural foramina appear patent. IMPRESSION: No acute osseous abnormalities. POS: [facility]
== END 2018-02-25 20:55 | disposition home or self-care (01) ==
LOC: NAV ERS 18:33
DX: G43.909 Migraine, unspecified, not intractable, without status migrainosus (principal); M54.5 Low back pain; M54.2 Cervicalgia; G89.29 Other chronic pain; E03.9 Hypothyroidism, unspecified; E78.5 Hyperlipidemia, unspecified; F41.9 Anxiety disorder, unspecified; F31.9 Bipolar disorder, unspecified; F41.0 Panic disorder [episodic paroxysmal anxiety]; Z87.891 Personal history of nicotine dependence
CPT/HCPCS: 36415; 70450; 72125; 72131; 80053; 85025; 85610; 85730; 86140; 96361; 96372; 96374; 96375; J1885; J2270; J2360; J2405; J7050

== ENCOUNTER 2018-03-08 15:04 | Emergency (ER) | payer OTHER, SELFPAY ==
[2018-03-08 16:24] LABS: Bilirubin Negative (Negative); Blood, Urine Moderate (Negative); Clarity Clear (Clear); Glucose, Urine (Dipstick) Negative (Negative); Leukocyte Negative (Negative); Nitrite Negative (Negative); Protein, Urine (Dipstick) Negative (Neg-Trace)
[2018-03-08 16:32] LABS: Bacteria/HPF Rare-Few HPF (None Seen); Squamous Epithelial 0-3 HPF (0-3)
[2018-03-08] MEDS ORDERED: Ketorolac Tromethamine 60 MG/2 ML VIAL ONE (16:55)
== END 2018-03-08 17:14 | disposition home or self-care (01) ==
LOC: NAV ERS 15:04
DX: J06.9 Acute upper respiratory infection, unspecified (principal); E78.5 Hyperlipidemia, unspecified; E03.9 Hypothyroidism, unspecified; F31.9 Bipolar disorder, unspecified; F41.0 Panic disorder [episodic paroxysmal anxiety]; K21.9 Gastro-esophageal reflux disease without esophagitis; M32.9 Systemic lupus erythematosus, unspecified; Z87.891 Personal history of nicotine dependence; Z85.850 Personal history of malignant neoplasm of thyroid; Z79.899 Other long term (current) drug therapy
CPT/HCPCS: 81003; 81015; 87081; 87430; 87804; 96372; J1885

== ENCOUNTER 2018-03-14 09:24 | Emergency (ER) | payer OTHER ==
[2018-03-14] MEDS ORDERED: Sodium Chloride 0.9% 1,000 ML ONE (09:53)
[2018-03-14] MEDS ORDERED: Metoclopramide HCl 10 MG/2 ML VIAL ONE (09:53)
[2018-03-14] MEDS ORDERED: diphenhydrAMINE 50 MG/ML VIAL ONE (09:53)
[2018-03-14 10:38] LABS: CKMB 0.7 ng/mL (0-6.6); Troponin I 0.036 ng/mL (< 0.028)
[2018-03-14 10:43] LABS: #Basophils 0.1 thou/uL (0.0-0.2); #Eosinphils 0.2 thou/uL (0.0-0.7); #Lymphocytes 1.7 thou/uL (1.20-3.40); #Monocytes 0.4 thou/uL (0.11-0.59); #Neutrophils 3.4 thou/uL (1.40-6.50); %Eosinophils 3.1 % (0.0-10.0); %Lymphocytes 29.4 % (21.0-51.0); %Monocytes 7.6 % (0.0-10.0); %Neutrophils 57.8 % (42.0-75.0); Hemoglobin 11.6 g/dL (12.0-16.0); Mean Corpuscular HGB CONC 32.5 g/dL (32.0-36.0); Mean Corpuscular Hemoglobin 31.3 pg (27.0-31.0); Mean Corpuscular Volume 96.6 fL (78.0-98.0); Mean Platelet Volume 5.5 fL (7.4-10.4); Platelet Count 373 thou/uL (130-400); RBC Distribution Width 12.3 % (11.5-14.5); White Blood Cell (WBC) Count 5.8 thou/uL (4.8-10.8)
[2018-03-14 10:50] LABS: ALT (SGPT) 21 U/L (8-55); AST (SGOT) 20 U/L (5-34); Albumin 4.1 g/dL (3.5-5.0); Alkaline Phosphatase 71 U/L (40-150); Anion Gap 15 mmol/L (10-20); BUN (Urea Nitrogen) 18 mg/dL (7.0-18.7); Bilirubin, Total 0.3 mg/dL (0.2-1.2); CK (CPK) 152 U/L (29-168); Calc. Creatinine Clearance 0 mL/min (70-130); Calcium 8.8 mg/dL (7.8-10.44); Carbon Dioxide 22 mmol/L (22-29); Chloride 107 mmol/L (98-107); Estimated GFR-MDRD Greater than 90; Globulin 3.4 g/dL (2.4-3.5); Glucose 95 mg/dL (70-105); Potassium 4.8 mmol/L (3.5-5.1); Protein, Total 7.5 g/dL (6.0-8.3); Sodium 139 mmol/L (136-145)
[2018-03-14] MEDS ORDERED: traMADol HCl 50 MG TAB ONE (11:40)
--- NOTE | 2018-03-14 11:48 | RAD ---
PA AND LATERAL VIEWS OF THE CHEST: History: Chest pain FINDINGS: Comparison made with exam of 516-18. The heart size is borderline. No focal areas of consolidation, pneumothorax, fermin pulmonary edema or pleural effusions. No acute osseous abnormalities are identified. IMPRESSION: No radiographic evidence of acute cardiopulmonary process. POS: [facility]
[2018-03-14 13:12] LABS: CKMB 0.6 ng/mL (0-6.6); Troponin I 0.014 ng/mL (< 0.028)
== END 2018-03-14 13:33 | disposition home or self-care (01) ==
LOC: NAV ERS 09:24
DX: R07.2 Precordial pain (principal); R51 Headache; E78.5 Hyperlipidemia, unspecified; K21.9 Gastro-esophageal reflux disease without esophagitis; E03.9 Hypothyroidism, unspecified; F41.9 Anxiety disorder, unspecified; F31.9 Bipolar disorder, unspecified; Z87.891 Personal history of nicotine dependence; Z79.899 Other long term (current) drug therapy
CPT/HCPCS: 71046; 80053; 82550; 82553; 84443; 84484; 85025; J1200; J2765; J7050

== ENCOUNTER 2018-04-25 13:50 | Emergency (ER) | payer SELFPAY ==
--- NOTE | 2018-04-25 14:39 | RAD ---
CHEST PA AND LATERAL: History: 38-year-old female with history of dyspnea, cough, and shortness of breath. Comparison: 03-14-18 FINDINGS: Heart size is within normal limits. The lungs are clear. No pneumonia, edema, pleural effusion or oth er acute process. IMPRESSION: No acute intrathoracic disease. POS: [facility]
== END 2018-04-25 14:55 | disposition home or self-care (01) ==
LOC: NAV ERS 13:50
DX: R05 Cough (principal); R07.9 Chest pain, unspecified; E03.9 Hypothyroidism, unspecified; K21.9 Gastro-esophageal reflux disease without esophagitis; E78.5 Hyperlipidemia, unspecified; F31.9 Bipolar disorder, unspecified; F41.0 Panic disorder [episodic paroxysmal anxiety]; Z87.891 Personal history of nicotine dependence; Z79.899 Other long term (current) drug therapy; Z79.51 Long term (current) use of inhaled steroids
CPT/HCPCS: 71046; 93005

== ENCOUNTER 2018-04-29 03:44 | Emergency (ER) | payer SELFPAY ==
[2018-04-29] MEDS ORDERED: Lidocaine 1% (PF) 30 ML VIAL ONE (03:56)
[2018-04-29] MEDS ORDERED: Adacel (T-DAP) 0.5 ML SYRINGE ONE (04:05)
== END 2018-04-29 04:14 ==
LOC: NAV ERS 03:44
DX: S01.512A Laceration without foreign body of oral cavity, initial encounter (principal); E78.5 Hyperlipidemia, unspecified; K21.9 Gastro-esophageal reflux disease without esophagitis; E03.9 Hypothyroidism, unspecified; Z87.891 Personal history of nicotine dependence; F31.9 Bipolar disorder, unspecified; F41.9 Anxiety disorder, unspecified; Z79.899 Other long term (current) drug therapy; W22.8XXA Striking against or struck by other objects, initial encounter
CPT/HCPCS: 12011; 90471; 90715; J2001

== ENCOUNTER 2019-03-11 14:07 | Emergency (ER) | payer MEDICAID, SELFPAY ==
[2019-03-11 14:46] LABS: #Basophils 0.1 thou/uL (0.0-0.2); #Eosinphils 0.2 thou/uL (0.0-0.7); #Lymphocytes 1.8 thou/uL (1.20-3.40); #Monocytes 0.3 thou/uL (0.11-0.59); #Neutrophils 3.1 thou/uL (1.40-6.50); %Basophils 1.3 % (0.0-1.0); %Eosinophils 3.1 % (0.0-10.0); %Lymphocytes 33.4 % (21.0-51.0); %Monocytes 5.4 % (0.0-10.0); %Neutrophils 56.8 % (42.0-75.0); Hemoglobin 12.9 g/dL (12.0-16.0); Mean Corpuscular HGB CONC 32.8 g/dL (32.0-36.0); Mean Platelet Volume 6.6 fL (7.4-10.4); Platelet Count 300 thou/uL (130-400); RBC Distribution Width 12.3 % (11.5-14.5); Red Blood Cell (RBC) Count 3.92 mill/uL (4.20-5.40); White Blood Cell (WBC) Count 5.4 thou/uL (4.8-10.8)
[2019-03-11 14:50] LABS: Prothrombin Time 12.7 SEC (12.0-14.7)
[2019-03-11 14:59] LABS: ALT (SGPT) 21 U/L (8-55); AST (SGOT) 27 U/L (5-34); Albumin 4.7 g/dL (3.5-5.0); Alkaline Phosphatase 40 U/L (40-110); Anion Gap 16 mmol/L (10-20); BUN (Urea Nitrogen) 15 mg/dL (7.0-18.7); Bilirubin, Total 0.4 mg/dL (0.2-1.2); Calc. Creatinine Clearance 0 mL/min (70-130); Carbon Dioxide 23 mmol/L (22-29); Chloride 102 mmol/L (98-107); Estimated GFR-MDRD 50; Globulin 3.3 g/dL (2.4-3.5); Glucose 85 mg/dL (70-105); Potassium 3.3 mmol/L (3.5-5.1); Sodium 138 mmol/L (136-145)
--- NOTE | 2019-03-11 16:26 | CT ---
EXAM: Abdomen and pelvic CT scan with contrast: HISTORY: Abdominal pain and vaginal bleeding COMPARISON: 12/06/2017 FINDINGS: Small to moderate hiatal hernia. The visualized lung bases are clear. Liver: 0.4 cm low-density focus in the liver near the gallbladder probably a small cyst. Gallbladder:Evidence for a phrygian cap Pancreas:Unremarkable Spleen:Unremarkable. Adrenal glands:Unremarkable. Kidneys:No renal calculus or acute obstruction. No solid or cystic renal mass. No evidence for bowel obstruction. No CT evidence for acute appendicitis. The urinary bladder is unremarkable. Reproductive system:Status post hysterectomy. No abscess, adenopathy, or abnormal fluid collection within the abdomen or pelvis. IMPRESSION: [id number] hiatal hernia. Status post hysterectomy. Other findings as above.
== END 2019-03-11 17:04 | disposition home or self-care (01) ==
LOC: NAV ERS 14:07
DX: N93.9 Abnormal uterine and vaginal bleeding, unspecified (principal); R10.31 Right lower quadrant pain; E78.5 Hyperlipidemia, unspecified; E03.9 Hypothyroidism, unspecified; F31.9 Bipolar disorder, unspecified; F41.0 Panic disorder [episodic paroxysmal anxiety]; M32.9 Systemic lupus erythematosus, unspecified; K21.9 Gastro-esophageal reflux disease without esophagitis; Z87.891 Personal history of nicotine dependence; Z79.51 Long term (current) use of inhaled steroids; Z79.899 Other long term (current) drug therapy; Z85.850 Personal history of malignant neoplasm of thyroid
CPT/HCPCS: 36415; 74177; 80053; 85025; 85610

== ENCOUNTER 2019-03-24 14:51 | Emergency (ER) | payer MEDICAID ==
[2019-03-24 15:19] LABS: Bilirubin Negative (Negative); Blood, Urine Moderate (Negative); Clarity Clear (Clear); Glucose, Urine (Dipstick) Negative (Negative); Leukocyte Negative (Negative); Nitrite Negative (Negative); Protein, Urine (Dipstick) 30 mg/dL (Neg-Trace)
[2019-03-24 15:30] LABS: Bacteria/HPF None Seen HPF (None Seen); Squamous Epithelial 0-3 HPF (0-3); WBC/HPF 0-3 HPF (0-3)
[2019-03-24] MEDS ORDERED: Ketorolac Tromethamine 60 MG/2 ML VIAL ONE (16:27)
[2019-03-24 16:40] LABS: #Basophils 0.1 thou/uL (0.0-0.2); #Eosinphils 0.2 thou/uL (0.0-0.7); #Lymphocytes 2.3 thou/uL (1.20-3.40); #Monocytes 0.4 thou/uL (0.11-0.59); #Neutrophils 2.9 thou/uL (1.40-6.50); %Basophils 1.2 % (0.0-1.0); %Eosinophils 2.6 % (0.0-10.0); %Lymphocytes 39.6 % (21.0-51.0); %Monocytes 6.8 % (0.0-10.0); %Neutrophils 49.8 % (42.0-75.0); Hemoglobin 11.5 g/dL (12.0-16.0); Mean Corpuscular HGB CONC 32.9 g/dL (32.0-36.0); Mean Corpuscular Hemoglobin 32.9 pg (27.0-31.0); Mean Corpuscular Volume 99.9 fL (78.0-98.0); Mean Platelet Volume 6.6 fL (7.4-10.4); Platelet Count 288 thou/uL (130-400); RBC Distribution Width 12.2 % (11.5-14.5); Red Blood Cell (RBC) Count 3.49 mill/uL (4.20-5.40); White Blood Cell (WBC) Count 5.8 thou/uL (4.8-10.8)
== END 2019-03-24 17:30 | disposition home or self-care (01) ==
LOC: NAV ERS 14:51
DX: N80.9 Endometriosis, unspecified (principal); E78.5 Hyperlipidemia, unspecified; E03.9 Hypothyroidism, unspecified; F33.9 Major depressive disorder, recurrent, unspecified; F41.0 Panic disorder [episodic paroxysmal anxiety]; M32.9 Systemic lupus erythematosus, unspecified; K21.9 Gastro-esophageal reflux disease without esophagitis; Z85.850 Personal history of malignant neoplasm of thyroid; Z79.51 Long term (current) use of inhaled steroids; Z79.899 Other long term (current) drug therapy; Z87.891 Personal history of nicotine dependence
CPT/HCPCS: 36415; 81003; 81015; 85025; 86140; 96372; 99284; J1885

== ENCOUNTER 2019-08-24 13:13 | Emergency (ER) | payer MEDICAID, OTHER ==
--- NOTE | 2019-08-24 14:27 | RAD ---
CHEST ONE VIEW PORTABLE: History: Presumpted Covid; fever, cough, nausea, vomiting. Comparison: 11-30-18 FINDINGS: Heart size is normal. The lungs are clear. No confluent pneumonia, overt edema, or pleural effusion. IMPRESSION: No significant acute intrathoracic disease. No evidence for pneumonia. Stable from prior study. POS: [facility]
[2019-08-24 15:00] LABS: #Basophils 0.1 thou/uL (0.0-0.2); #Eosinphils 0.1 thou/uL (0.0-0.7); #Lymphocytes 1.7 thou/uL (1.20-3.40); #Monocytes 0.4 thou/uL (0.11-0.59); #Neutrophils 4.1 thou/uL (1.40-6.50); %Basophils 1.1 % (0.0-1.0); %Eosinophils 2.3 % (0.0-10.0); %Monocytes 5.7 % (0.0-10.0); %Neutrophils 63.9 % (42.0-75.0); Hemoglobin 12.6 g/dL (12.0-16.0); Mean Corpuscular HGB CONC 33.1 g/dL (32.0-36.0); Mean Corpuscular Hemoglobin 34.4 pg (27.0-31.0); Mean Platelet Volume 6.9 fL (7.4-10.4); Platelet Count 277 thou/uL (130-400); RBC Distribution Width 10.9 % (11.5-14.5); Red Blood Cell (RBC) Count 3.66 mill/uL (4.20-5.40); White Blood Cell (WBC) Count 6.4 thou/uL (4.8-10.8)
[2019-08-24 15:09] LABS: Bilirubin Negative (Negative); Blood, Urine Large (Negative); Clarity Clear (Clear); Glucose, Urine (Dipstick) Negative (Negative); Leukocyte Negative (Negative); Nitrite Negative (Negative); Protein, Urine (Dipstick) Negative (Neg-Trace); Urobilinogen 0.2 mg/dL (Less than 2)
[2019-08-24 15:14] LABS: Bacteria/HPF Rare-Few HPF (None Seen); Squamous Epithelial 0-3 HPF (0-3); WBC/HPF 0-3 HPF (0-3)
[2019-08-24 15:21] LABS: ALT (SGPT) 19 U/L (8-55); AST (SGOT) 27 U/L (5-34); Albumin 4.5 g/dL (3.5-5.0); Alkaline Phosphatase 33 U/L (40-110); Anion Gap 15 mmol/L (10-20); BUN (Urea Nitrogen) 15 mg/dL (7.0-18.7); Bilirubin, Total 0.5 mg/dL (0.2-1.2); Calc. Creatinine Clearance 0 mL/min (70-130); Calcium 8.8 mg/dL (7.8-10.44); Carbon Dioxide 21 mmol/L (22-29); Chloride 103 mmol/L (98-107); Estimated GFR-MDRD 73; Glucose 89 mg/dL (70-105); Potassium 4.1 mmol/L (3.5-5.1); Protein, Total 7.5 g/dL (6.0-8.3); Sodium 135 mmol/L (136-145)
[2019-08-24 16:43] LABS: MDiff Complete? YES; Macrocytosis SLIGHT = 6-15 cells (100X) (0-5/hpf); Platelet Morphology Comment Appears Adequate
== END 2019-08-24 15:45 | disposition home or self-care (01) ==
LOC: NAV ERS 13:13
DX: R05 Cough (principal); Z20.828 Contact with and (suspected) exposure to other viral communicable diseases; E78.5 Hyperlipidemia, unspecified; M32.9 Systemic lupus erythematosus, unspecified; K21.9 Gastro-esophageal reflux disease without esophagitis; E03.9 Hypothyroidism, unspecified; F41.0 Panic disorder [episodic paroxysmal anxiety]; F31.9 Bipolar disorder, unspecified; Z87.891 Personal history of nicotine dependence; J45.909 Unspecified asthma, uncomplicated; Z79.51 Long term (current) use of inhaled steroids; Z79.899 Other long term (current) drug therapy
CPT/HCPCS: 36415; 71045; 80053; 81003; 81015; 84484; 85025; 87081; 87430; 87635; 87804; 93005; U0003

== ENCOUNTER 2019-10-29 12:13 | Emergency (ER) | payer MEDICAID ==
[2019-10-29] MEDS ORDERED: Bacitracin 1 PK ONE (12:36)
== END 2019-10-29 12:45 | disposition home or self-care (01) ==
LOC: NAV ERS 12:13
DX: H92.02 Otalgia, left ear (principal); E78.5 Hyperlipidemia, unspecified; F41.9 Anxiety disorder, unspecified; F31.9 Bipolar disorder, unspecified; Z87.891 Personal history of nicotine dependence; Z79.899 Other long term (current) drug therapy
CPT/HCPCS: 99282

== ENCOUNTER 2020-10-17 14:25 | Emergency (ER) | payer OTHER, SELFPAY ==
[2020-10-17] MEDS ORDERED: Ondansetron PF 4 MG/2 ML Vial ONE (15:17)
[2020-10-17] MEDS ORDERED: Morphine 4 MG/ML VIAL ONE (15:17)
[2020-10-17 15:32] LABS: #Basophils 0.1 thou/uL (0.0-0.2); #Eosinphils 0.1 thou/uL (0.0-0.7); #Lymphocytes 1.5 thou/uL (1.20-3.40); #Monocytes 0.2 thou/uL (0.11-0.59); #Neutrophils 2.1 thou/uL (1.40-6.50); %Basophils 1.5 % (0.0-1.0); %Lymphocytes 37.4 % (21.0-51.0); %Monocytes 5.8 % (0.0-10.0); %Neutrophils 52.3 % (42.0-75.0); Hemoglobin 12.4 g/dL (12.0-16.0); Mean Corpuscular HGB CONC 30.1 g/dL (32.0-36.0); Mean Corpuscular Hemoglobin 32.6 pg (27.0-31.0); Mean Platelet Volume 7.1 fL (7.4-10.4); Platelet Count 291 thou/uL (130-400); RBC Distribution Width 11.6 % (11.5-14.5); Red Blood Cell (RBC) Count 3.82 mill/uL (4.20-5.40)
[2020-10-17 15:38] LABS: MDiff Complete? YES; Macrocytosis SLIGHT = 6-15 cells (100X) (0-5/hpf)
[2020-10-17 15:47] LABS: ALT (SGPT) 59 U/L (8-55); AST (SGOT) 42 U/L (5-34); Albumin 4.4 g/dL (3.5-5.0); Alkaline Phosphatase 33 U/L (40-110); Anion Gap 14 mmol/L (10-20); BUN (Urea Nitrogen) 10 mg/dL (7.0-18.7); Bilirubin, Total 0.6 mg/dL (0.2-1.2); Calc. Creatinine Clearance 0 mL/min (70-130); Calcium 8.6 mg/dL (7.8-10.44); Carbon Dioxide 25 mmol/L (22-29); Chloride 104 mmol/L (98-107); Globulin 3.3 g/dL (2.4-3.5); Glucose 80 mg/dL (70-105); Protein, Total 7.7 g/dL (6.0-8.3); Sodium 139 mmol/L (136-145)
[2020-10-17 15:47] LABS: Bilirubin Negative (Negative); Blood, Urine Small (Negative); Clarity Clear (Clear); Glucose, Urine (Dipstick) Negative (Negative); Ketone, Urine Negative (Negative); Leukocyte Negative (Negative); Nitrite Negative (Negative); Protein, Urine (Dipstick) Negative (Neg-Trace); Urobilinogen 0.2 mg/dL (Less than 2); pH, Urine 7.5 (5.0-9.0)
[2020-10-17 15:48] LABS: Bacteria/HPF None Seen HPF (None Seen); RBC/HPF 0-3 HPF (0-3); WBC/HPF None Seen HPF (0-3)
== END 2020-10-17 16:10 | disposition home or self-care (01) ==
LOC: NAV ERS 14:25
DX: S39.011A Strain of muscle, fascia and tendon of abdomen, initial encounter (principal); S20.212A Contusion of left front wall of thorax, initial encounter; J45.909 Unspecified asthma, uncomplicated; E78.5 Hyperlipidemia, unspecified; E03.9 Hypothyroidism, unspecified; F17.210 Nicotine dependence, cigarettes, uncomplicated; Z79.899 Other long term (current) drug therapy; W18.30XA Fall on same level, unspecified, initial encounter
CPT/HCPCS: 71260; 74177; 80053; 81003; 81015; 85025; 96374; 96375; J2270; J2405; Q9967

== ENCOUNTER 2020-11-07 09:27 | Emergency (ER) | payer MEDICAID, OTHER ==
[2020-11-07 10:23] LABS: Bilirubin Negative (Negative); Blood, Urine Moderate (Negative); Clarity Clear (Clear); Glucose, Urine (Dipstick) Negative (Negative); Ketone, Urine Negative (Negative); Leukocyte Negative (Negative); Nitrite Negative (Negative); Protein, Urine (Dipstick) Negative (Neg-Trace); Specific Gravity, Urine 1.015 (1.005-1.030); Urobilinogen 0.2 mg/dL (Less than 2)
[2020-11-07 10:30] LABS: RBC/HPF 0-3 HPF (0-3); Squamous Epithelial 0-3 HPF (0-3)
[2020-11-07 10:32] LABS: Amphetamine Detected (NotDetected); Barbiturates Screen Not Detected (NotDetected); Benzodiazepine Screen Not Detected (NotDetected); Cocaine Metabolite Screen Not Detected (NotDetected); Medtox Control Line Valid? VALID (VALID); Methadone Not Detected (NotDetected); Methamphetamine Detected (NotDetected); Opiate Screen Not Detected (NotDetected); Oxycodone Screen Not Detected (NotDetected); Phencyclidine (PCP) Not Detected (NotDetected); THC/Cannabinoid Screen Detected (NotDetected); Tricyclic Screen Not Detected (NotDetected)
== END 2020-11-07 10:59 | disposition home or self-care (01) ==
LOC: NAV ERS 09:27
DX: S23.41XA Sprain of ribs, initial encounter (principal); R10.9 Unspecified abdominal pain; J45.909 Unspecified asthma, uncomplicated; E78.5 Hyperlipidemia, unspecified; K21.9 Gastro-esophageal reflux disease without esophagitis; E03.9 Hypothyroidism, unspecified; F17.210 Nicotine dependence, cigarettes, uncomplicated; Z79.899 Other long term (current) drug therapy; W19.XXXA Unspecified fall, initial encounter
CPT/HCPCS: 80306; 81003; 81015; 99284

== ENCOUNTER 2022-04-26 16:05 | Emergency (ER) | payer OTHER, SELFPAY ==
[2022-04-26 16:27] LABS: Bilirubin Negative (Negative); Blood, Urine Large (Negative); Clarity Clear (Clear); Glucose, Urine (Dipstick) Negative (Negative); Ketone, Urine Negative (Negative); Leukocyte Trace (Negative); Nitrite Negative (Negative); Protein, Urine (Dipstick) Negative (Neg-Trace); Specific Gravity, Urine 1.015 (1.005-1.030); Urobilinogen 0.2 mg/dL (Less than 2); pH, Urine 6.5 (5.0-9.0)
[2022-04-26 16:40] LABS: Bacteria/HPF 1+ HPF (None Seen); WBC/HPF 0-3 HPF (0-3)
== END 2022-04-26 16:59 | disposition home or self-care (01) ==
LOC: NAV ERS 16:05
DX: N39.0 Urinary tract infection, site not specified (principal); E03.9 Hypothyroidism, unspecified; K21.9 Gastro-esophageal reflux disease without esophagitis; J45.909 Unspecified asthma, uncomplicated; E78.5 Hyperlipidemia, unspecified; F17.210 Nicotine dependence, cigarettes, uncomplicated; Z79.899 Other long term (current) drug therapy
CPT/HCPCS: 81003; 81015; 87077; 87086; 87186; 99283

== ENCOUNTER 2023-11-17 04:10 | Emergency (ER) | payer SELFPAY | END 2023-11-17 04:38 | disposition home or self-care (01) | LOC: NAV ERS 04:10 | DX: F15.129 Other stimulant abuse with intoxication, unspecified (principal); F41.9 Anxiety disorder, unspecified; F17.210 Nicotine dependence, cigarettes, uncomplicated | CPT/HCPCS: 99284 ==